=== PATIENT | male | born 1990 ===

== ENCOUNTER → 2021-01-08 | Outpatient (REF) ==
--- NOTE | 2021-01-08 10:22 | REPPI ---
INDICATION: DISABILITY DETERMINATION COMPARISON: None. TECHNIQUE: AP, lateral, bilateral oblique views left foot. FINDINGS: Surgical changes at the head of the 1st metatarsal bone. Overlying soft tissue appears normal. Remainder of the left foot is unremarkable and age-appropriate. IMPRESSION: Relatively appropriate postsurgical changes involving the head of the 1st metatarsal bone. Otherwise age-appropriate examination. <Electronically signed by Alvarado Lynch > 01/08/21 1016
== END ==
LOC: M PLAIMG 09:53
PROVIDERS: ATTEND Internal Medicine
DX: Z02.71 Encounter for disability determination (principal)